=== PATIENT | male | born 1950 ===

== ENCOUNTER 2020-05-05 11:47 | Day surgery (SDC) | payer BC ==
[2020-05-05] MEDS ORDERED: Iopamidol 200-M 10 ML vial ITHECAL ONE (13:00)
[2020-05-05] MEDS ORDERED: Betamethasone Acetate/Betamethasone Sod Phosphate 30 MG/5 ML MDV EPIDUR ONE (13:00)
[2020-05-05] MEDS ORDERED: Ropivacaine 0.5% 5 MG/ML 30 ML SDV INJECT ONE (13:00)
[2020-05-05] MEDS ORDERED: Lidocaine 2% 5 ML SDV INJECT ONE (13:00)
--- NOTE | 2020-05-05 14:55 | OR ---
SURGEON: Aurelia Tapia D.O. DATE OF PROCEDURE: 05/05/2020 PRIMARY SURGEON: Aurelia Tapia D.O. ASSISTANTS: OR staff present: 1. Rahul Weir RN. 2. Maryam Sheikh RN. 3. RT Todd. WOUND CLASS: I. PREOPERATIVE DIAGNOSES: 1. Lumbar L5-S1 degenerative disk disease. 2. Lumbar radiculopathy, bilateral lower extremities. 3. Lumbar spinal stenosis. POSTOPERATIVE DIAGNOSES: 1. Lumbar L5-S1 degenerative disk disease. 2. Lumbar radiculopathy, bilateral lower extremities. 3. Lumbar spinal stenosis. PROCEDURES PERFORMED: 1. Right S1 transforaminal epidural steroid injection. 2. Left S1 transforaminal epidural steroid injection. 3. Fluoroscopic guidance for needle placement. 4. Local with oral Valium for sedation. SCREENING QUESTIONS: The patient answered "no" to all of the following questions: 1. Are you allergic to iodine, Betadine or latex? 2. Do you have a bleeding disorder? 3. Do you have any joint replacements, heart valve replacements, or a pacemaker? 4. Are you allergic to anti-inflammatories or blood thinners? 5. Do you have any current local or systemic infections? DESCRIPTION OF PROCEDURE: The patient had the procedure thoroughly explained including risks, benefits and alternatives. Consent was signed in my clinic indicating understanding and willingness to proceed. The patient presented to [facility] [place] where the patient was escorted to the dressing room to disrobe and change into a hospital gown. Preoperative vital signs were taken and stable. The patient reported that Valium was taken prior to the procedure. The patient was brought to the procedure room and placed in the prone position on the table. A pillow was placed under the abdomen in order to flatten the lumbar lordosis. The back was prepped with ChloraPrep and sterilely draped. All personnel in the operating room were dressed in appropriate attire including surgical scrubs, head and shoe covers. This was to ensure sterility while in the treatment room. During the time fluoroscopy was in use, all personnel in the operating room wore lead cronin with thyroid collars. Sterile technique was used during the procedure. The fluoroscope was placed for the right S1 transforaminal epidural steroid injection. There was no sign of infection at the skin site for needle insertion. The skin was anesthetized with 2% lidocaine with a 27 gauge 1-1/2 inch needle. Then, a 22 gauge 3-1/2 inch spinal needle, advanced to the right S1 foramen. Under direct fluoroscopic guidance needle position was verified in three views; AP, oblique and lateral, with 0.2 cubic centimeters increments of Isovue-200 dye. No intravascular flow pattern was observed under live fluoroscopy.Then 6 milligrams of Celestone was slowly injected after negative aspiration of heme, cerebrospinal fluid and no paresthesias were noted. The needle was cleared prior to removal from the skin. The procedure was then repeated as above for the left S1 Transforaminal epidural steroid injection.No adverse reactions were noted. The patient was brought to the recovery room awake and in good condition by my staff. The patient was monitored and discharge instructions were given after a brief stay in the recovery area. Both oral and written discharge and follow up instructions were given. The patient will follow up in the clinic in 3-4 weeks post procedure to evaluate the efficacy. The patient verbalized understanding including understanding of those signs and symptoms that would require emergency care and knows how to contact the office if there are any problems or questions in the meantime. PREOPERATIVE PAIN: 5/10. POSTOPERATIVE PAIN: 0/10. FOLLOWUP: In the Pain Clinic in 3 weeks. TRUDY / PAULINA /[id number] KARLI
== END 2020-05-05 13:39 ==
LOC: MW.SDS 11:47
PROVIDERS: ATTEND Anesthesiology
DX: M51.17 Intervertebral disc disorders with radiculopathy, lumbosacral region (principal); M48.062 Spinal stenosis, lumbar region with neurogenic claudication; M47.897 Other spondylosis, lumbosacral region; M79.18 Myalgia, other site; Z79.899 Other long term (current) drug therapy